=== PATIENT | female | born 1995 | race African-American/Black ===

== ENCOUNTER 2016-10-29 16:16 | Emergency (ER) | payer SELFPAY ==
[2016-10-29] MEDS ORDERED: Famotidine 20 MG TAB ONE (16:36)
[2016-10-29] MEDS ORDERED: Ondansetron ODT 4 MG TAB ONE (16:36)
[2016-10-29 16:50] LABS: Bilirubin Negative (Negative); Blood, Urine Moderate (Negative); Glucose, Urine (Dipstick) Negative (Negative); Leukocyte Negative (Negative); Nitrite Negative (Negative); Pregu Control Bar Appear? YES (CONTROL BAR); Protein, Urine (Dipstick) Negative (Neg-Trace); Urobilinogen 0.2 mg/dL (0.2-1.0)
[2016-10-29 16:51] LABS: Clarity Hazy (Clear)
[2016-10-29 16:59] LABS: Bacteria/HPF 1+ HPF (None Seen); RBC/HPF 0-3 HPF (0-3); WBC/HPF 0-3 HPF (0-3)
== END 2016-10-29 17:05 | disposition home or self-care (01) ==
LOC: MADERS 16:16
DX: N83.209 Unspecified ovarian cyst, unspecified side (principal)
CPT/HCPCS: 81003; 81015; 81025; 99284; Q0162

== ENCOUNTER 2017-04-13 02:33 | Emergency (ER) | payer SELFPAY ==
[2017-04-13] MEDS ORDERED: Diazepam 5 MG TAB ONE (03:50)
[2017-04-13] MEDS ORDERED: HYDROcodone/Acetaminophen 10/325 mg Tablet ONE (03:50)
[2017-04-13] MEDS ORDERED: Naproxen 500 MG TAB ONE (03:50)
--- NOTE | 2017-04-13 08:01 | RAD ---
RIGHT SHOULDER 3 VIEWS: HISTORY: Injury. Right shoulder pain. FINDINGS: No acute fracture or dislocation is identified. POS: [facility]
--- NOTE | 2017-04-13 08:08 | RAD ---
RIGHT FOOT 3 VIEWS: HISTORY: Injury. Right foot pain. FINDINGS/IMPRESSION: Comparison is made with the exam of 08/03/13. No acute fracture or dislocation is seen. POS: [facility]
--- NOTE | 2017-04-13 08:10 | RAD ---
CERVICAL SPINE 3 VIEWS: HISTORY: Injury. Neck pain. FINDINGS/IMPRESSION: There is loss of cervical lordosis likely due to muscle spasm. No fracture or subluxation is seen. If there is focal tenderness, neurologic deficit, or high clinical suspicion for injury to the cervi stephanie spine, further evaluation with CT scan should be performed. POS: [facility]
== END 2017-04-13 04:00 | disposition home or self-care (01) ==
LOC: MADERS 02:33
DX: S00.83XA Contusion of other part of head, initial encounter (principal); Y04.0XXA Assault by unarmed brawl or fight, initial encounter
CPT/HCPCS: 72040

== ENCOUNTER 2018-06-11 08:16 | Emergency (ER) | payer SELFPAY | END 2018-06-11 08:42 | disposition home or self-care (01) | LOC: MADERS 08:16 | DX: J06.9 Acute upper respiratory infection, unspecified (principal); F17.210 Nicotine dependence, cigarettes, uncomplicated | CPT/HCPCS: 99283 ==

== ENCOUNTER 2023-05-29 09:02 | Emergency (ER) | payer BC, SELFPAY | END 2023-05-29 10:25 | disposition home or self-care (01) | LOC: MADERS 09:02 | DX: J02.0 Streptococcal pharyngitis (principal); Z20.822 Contact with and (suspected) exposure to COVID-19; F17.210 Nicotine dependence, cigarettes, uncomplicated | CPT/HCPCS: 87430; 87635; 87804; 99283 ==